=== PATIENT | female | born 1955 | race Caucasian/White ===

== ENCOUNTER → 2019-01-02 | Outpatient (CLI) | payer OTHER | LOC: RAD 13:05 | DX: J44.9 Chronic obstructive pulmonary disease, unspecified (principal); I27.20 Pulmonary hypertension, unspecified; Z88.2 Allergy status to sulfonamides; M48.54XA Collapsed vertebra, not elsewhere classified, thoracic region, initial encounter for fracture ==

== ENCOUNTER → 2019-02-28 | Outpatient (CLI) | payer OTHER ==
--- NOTE | 2019-03-04 08:37 | SLE ---
[facility] [place] [address] POLYSOMNOGRAPHY STUDY Name: KING TRUJILLO Room #: REG [facility].#: [id number] Admission: 02/28/19 Attend Phys: Mike Armendariz MD Discharge: Date of : 57 Report #: [id number] THIS REPORT FOR: //name// CC: Mike Mas MD DATE OF SERVICE: 02/28/2019 ATTENDING PHYSICIAN: Dr. Christopher Mas. The patient is a 63-year-old who weighs 120 pounds with a BMI of 18.8. The patient's [place] score was 10. The patient underwent split night study performed at [facility]. During the night study, the patient spent 426 minutes in bed and slept for 234 minutes with a low sleep efficiency of 55%. Sleep latency was 79.6 minutes with a REM latency of 179.5 minutes. Sleep architecture showed normal stage 1 sleep, increased stage 2 sleep, absent slow wave and reduced REM sleep. During the initial diagnostic portion of the study, the patient slept for 105 minutes. During that time, there were 2 obstructive apneas, no mixed or central apneas and 14 hypopneas. The patient's apnea hypopnea index was 9.1 per hour. REM sleep was not seen during the diagnostic portion. Supine AHI was 13 per hour. EKG monitoring revealed average heart rate of 87 beats per minute. Occasional PVCs seen. No sustained arrhythmias observed. PLMs were seen at an index of 32 per hour and 9 per hour caused EEG arousals. PLM index improved to 14 per hour with an arousal index of 1.4 per hour while the patient slept on CPAP. Nocturnal oximetry study revealed an average oxygen saturation 80% with a lowest of 65%. 53 minutes were spent in oxygen saturation of less than 89% and another 51 minutes with saturation of less than 79 minutes. The patient met the criteria for CPAP initiation. It was started at 8 cm water and titrated up to 14 cm water. At the final pressure, the patient slept for 52.8 minutes. The patient's AHI was reduced to 0 per hour. The patient's oxygen saturations remained in the mid 80s to high 80s with a lowest of 82%. Hypoxia persisted despite elimination of respiratory events. The patient had supine sleep at the final pressure. IMPRESSION: 1. Mild sleep apnea-hypopnea syndrome at an AHI of 9.1 per hour. Absence of [facility] [address] [place] [address] POLYSOMNOGRAPHY STUDY Name: KING TRUJILLO Room #: REG CLAmee Zambrano#: [id number] Admission: 02/28/19 Attend Phys: Mike Armendariz MD Discharge: Date of : 57 Report #: [id number] REM sleep during the diagnostic portion can underestimate the severity of sleep apnea. 2. Nocturnal hypoxia secondary to combination of AIDAN and suspected hypoventilation.( Patient with known severe COPD). Hypoxia did not resolve with CPAP. 3. Moderate PLMs which improved from an index of 32 per hour to 14 per hour while the patient slept on CPAP. Arousal index while on CPAP was only 1 per hour. As such, PLMs does not need to be treated. RECOMMENDATIONS: 1. CPAP at 14 cm water with 1 liter of supplemental oxygen should be used on a nightly basis. 2. Follow up in 4-6 weeks to assess compliance with CPAP and to document clinical improvement. 3. Avoid [employer] depressants. 4. Cautioned regarding driving until symptoms of sleep apnea resolve with the use of CPAP. <ELECTRONICALLY SIGNED> By: Dallas Barton MD 03/04/19 [id number] Dallas Barton MD /nt
== END ==
LOC: SLEEPLAB 02-22 14:07
DX: G47.33 Obstructive sleep apnea (adult) (pediatric) (principal); G47.30 Sleep apnea, unspecified; R09.02 Hypoxemia